=== PATIENT | male | born 1995 | race African-American/Black ===

== ENCOUNTER 2025-04-18 04:11 | Emergency (ER) | payer SELFPAY ==
[2025-04-18] MEDS ORDERED: Dexamethasone 4 MG TAB ONE (04:34)
[2025-04-18] MEDS ORDERED: Bicillin LA 1.2 MILLION UNITS/2 ML SYRINGE ONE (04:34)
[2025-04-18] MEDS ORDERED: Ketorolac Tromethamine 30 MG (1 mL) VIAL ONE (04:34)
[2025-04-18 04:46] LABS: Bacteria/HPF None Seen HPF (None Seen); CAUTI Indications for Culture Fever or rigors; Glucose, Urine (Dipstick) Normal (Negative); Leukocyte 250 Leu/uL (Negative); Protein, Urine (Dipstick) 20 mg/dL (Neg-Trace); RBC/HPF 0-3 HPF (0-3); Specific Gravity, Urine 1.022 (1.002-1.036); WBC/HPF Greater than 50 HPF (0-3)
[2025-04-18 04:47] LABS: Urine Culture Reflex Yes Yes
== END 2025-04-18 04:54 | disposition home or self-care (01) ==
LOC: ERS 04:11
DX: J02.0 Streptococcal pharyngitis (principal); F17.210 Nicotine dependence, cigarettes, uncomplicated
CPT/HCPCS: 81001; 87081; 87086; 87428; 87430; 96372; 99283; J0561; J1885; J8540